=== PATIENT | female | born 1990 | race Caucasian/White ===

== ENCOUNTER 2018-08-22 00:15 | Emergency (ER) | payer SELFPAY ==
[~2018-08-22] VITALS: Ht 152.4 cm; Wt 47.7 kg
[2018-08-22 00:16] VITALS: BP 139/75
[2018-08-22] MEDS ORDERED: VENTAER INH (00:23)
== END 2018-08-22 05:01 | disposition left against medical advice (07) ==
LOC: M ED 00:15
DX: R06.02 Shortness of breath (principal); Z53.21 Procedure and treatment not carried out due to patient leaving prior to being seen by health care provider

== ENCOUNTER → 2019-01-07 | Outpatient (REF) | payer OTHER ==
[~2019-01-07] MED LIST: VENTAER INH
== END ==
LOC: M SFHCLERA 14:57
PROVIDERS: ATTEND Nurse Practitioner Family
DX: Z00.00 Encounter for general adult medical examination without abnormal findings (principal); Z53.9 Procedure and treatment not carried out, unspecified reason

== ENCOUNTER → 2019-01-09 | Outpatient (CLI) | payer OTHER ==
[~2019-01-09] MED LIST changes: +METHACHOLINE KIT (J7674) INH ONE
--- NOTE | 2019-01-09 08:27 | PFTRPT ---
Height: 60.50 Inches Weight: 105.00 Lbs BSA: 1.43 Diagnosis: R06.00 DATE OF PROCEDURE: 01/09/2019 ORDERED BY: Damaso Jain PA-C INTERPRETATION: Study of excellent technical quality. Under protocol, methacholine was administered. Even after a maximal dose of 25 mg or 188.875 CDUs, no provocation dose ever achieved. IMPRESSION: Negative methacholine challenge study. MTDD
== END ==
LOC: M CARPUL 07:24
PROVIDERS: ATTEND Physician Assistant
DX: R06.00 Dyspnea, unspecified (principal)
CPT/HCPCS: 94070; J7674

== ENCOUNTER → 2019-02-26 | Outpatient (CLI) | payer OTHER ==
[~2019-02-26] MED LIST changes: -METHACHOLINE KIT (J7674) INH ONE
[2019-02-26 14:22] LABS: FREE T4 1.04 NG/DL (0.76-1.46); PROLACTIN 9.4 NG/ML; THYROID STIMULATING HORMONE 1.68 uIU/ML (0.358-3.740)
[2019-02-26 14:30] LABS: HEMOGLOBIN A1c 5.2 %
== END ==
LOC: M PLALAB 10:37
PROVIDERS: ATTEND Advanced Practice Midwife
DX: N92.1 Excessive and frequent menstruation with irregular cycle (principal)

== ENCOUNTER → 2019-03-04 | Outpatient (CLI) | payer OTHER ==
--- NOTE | 2019-03-05 05:32 | REP ---
Clinical: Abnormal menstrual cycles. Technique: Transabdominal pelvic ultrasound with color Doppler evaluation of the ovaries. Findings: Bladder is well distended and normal measuring approximately 9.7 x 6.0 x 8.4 cm. Normal anteverted uterus measures 6.6 x 4.3 x 5.2 cm. Endometrial complex measures 8.8 mm thickness. Bilateral ovaries are normal in appearance and vascularity without torsion. Right ovary measures 3.9 x 1.8 x 3.7 cm (RI 0.50). Left ovary measures 2.5 x 125.7 cm (RI 0.47). No pelvic fluid or adnexal mass lesion. Impression: Normal pelvic ultrasound.
== END ==
LOC: M WHC 13:47
PROVIDERS: ATTEND Advanced Practice Midwife
DX: N92.1 Excessive and frequent menstruation with irregular cycle (principal); N94.6 Dysmenorrhea, unspecified

== ENCOUNTER → 2019-04-29 | Outpatient (CLI) | payer OTHER ==
--- NOTE | 2019-04-29 09:46 | REP ---
Chest x-ray: Two views. History: Cough . Comparison study: No comparison study . Findings: The lungs are well inflated and free of infiltrate. The pleural angles are sharp. The heart size is normal. Pulmonary vasculature is not increased. No significant bony abnormality is seen. Nipple jewelry is noted incidentally overlying the chest. Impression: Negative chest x-ray. Electronically Signed by Rodney Pradhan MD 04/29/2019 09:37 A
== END ==
LOC: M LRY 09:24
PROVIDERS: ATTEND Nurse Practitioner Family
DX: R05 Cough (principal)
CPT/HCPCS: 71046; G0463

== ENCOUNTER → 2019-05-12 | Outpatient (CLI) | payer OTHER ==
--- NOTE | 2019-05-12 09:20 | REP ---
Clinical: Mass. Technique: AP and lateral views of the sternum. Findings: Sternum appears intact and normal. Overlying precervical soft tissues appear unremarkable. Impression: Normal sternal radiographs. Electronically Signed by Stephan Mars MD 05/12/2019 09:11 A
--- NOTE | 2019-05-12 09:21 | REP ---
Clinical: Right rib pain Technique: Frontal view of the chest with multiple views of the right hemithorax. Findings: Frontal view of the chest demonstrates no acute cardiopulmonary process. Multiple views of the right hemithorax demonstrates no obvious acute rib fracture or pathology. Impression: Normal right rib series Electronically Signed by Stephan Mars MD 05/12/2019 09:12 A
== END ==
LOC: M LRY 07:56
PROVIDERS: ATTEND Family Medicine
DX: R07.81 Pleurodynia (principal)
CPT/HCPCS: 71101; 71120; G0463

== ENCOUNTER → 2019-05-15 | Outpatient (CLI) | payer OTHER ==
--- NOTE | 2019-05-15 11:30 | REP ---
REASON FOR EXAM: Right parasternal mass. There are no priors for comparison. There is a small amount of triangular-shaped density in the anterior mediastinum. There is no mediastinal or hilar adenopathy. There are no pleural or pericardial effusions. The imaged upper abdomen is within normal limits. The imaged osseous structures are within normal limits. There is some asymmetry of the sternal chondral junction, which has a slightly more prominent anterior projection on the right at the lowest margin of the sternal body and essentially at the xiphisternal junction. Evaluation of the lung mayen show no abnormal nodules, masses, or opacities. IMPRESSION: There is slight asymmetry of the sternal chondral junction as described above which could potentially be the clinically palpable finding. Asymmetry is, however, somewhat slight and would be within normal limits. There is no soft tissue mass. If clinically relevant, consider MRI for further evaluation. Electronically Signed by Kirill Villasenor DO 05/15/2019 02:41 P
== END ==
LOC: M RAD 09:31
PROVIDERS: ATTEND Family Medicine
DX: R07.81 Pleurodynia (principal)

== ENCOUNTER → 2019-06-04 | Outpatient (CLI) | payer OTHER ==
[~2019-06-04] MED LIST changes: +PROHANCE 279.3MG/ML 15ML VIAL (A9576) As Ordered ONE
--- NOTE | 2019-06-04 18:20 | REP ---
MRI CHEST WITH AND WITHOUT CONTRAST: HISTORY: Palpable lump right anterior chest. The lump is marked on the skin. COMPARISON: Comparison is made with CT 05/15/2019. Multiple sequences obtained in the axial, coronal and sagittal planes prior to and following the intravenous administration of 9.5 mL ProHance. No soft tissue mass is seen in the anterior chest wall. No cyst or fluid collection is seen. At the site of the palpable lump the xyphoid process angulates anteriorly and to the right and accounts for the palpable abnormality. No definite abnormality is seen of the sternum. IMPRESSION: Palpable lump appears to correspond to the xyphoid process which is angulated anteriorly and to the right. There is no underlying cystic or solid mass. Electronically Signed by Austin Kunz MD 06/04/2019 07:29 P
== END ==
LOC: M RAD 15:01
PROVIDERS: ATTEND Family Medicine
DX: R07.81 Pleurodynia (principal)
CPT/HCPCS: 71552; A9576

== ENCOUNTER → 2019-09-11 | Outpatient (REF) | payer OTHER ==
[~2019-09-11] MED LIST changes: -PROHANCE 279.3MG/ML 15ML VIAL (A9576) As Ordered ONE
== END ==
LOC: M SFHCWAGY 15:03
PROVIDERS: ATTEND Advanced Practice Midwife
DX: Z12.4 Encounter for screening for malignant neoplasm of cervix (principal)

== ENCOUNTER → 2019-11-14 | Outpatient (CLI) | payer OTHER ==
[2019-11-14 14:00] LABS: BASO % 0.8 % (0.0-1.0); EOS # 0.1 10^3/uL (0.0-0.5); EOS % 1.6 % (0.0-3.0); HEMATOCRIT 43.4 % (36.0-47.0); HEMOGLOBIN 14.3 g/dl (12.0-15.5); LYMPH # 1.2 10^3/uL (1.5-5.0); LYMPH % 32.5 % (24.0-44.0); MEAN CORPUSCULAR HEMOGLOBIN 30.4 pg (27.0-33.0); MEAN CORPUSCULAR HGB CONC 32.9 g/dl (32.0-36.5); MEAN CORPUSCULAR VOLUME 92.3 fl (80.0-96.0); MONO # 0.5 10^3/uL (0.0-0.8); MONO % 13.4 % (0.0-5.0); NEUTROPHILS # 1.9 10^3/uL (1.5-8.5); NEUTROPHILS % 51.7 % (36.0-66.0); PLATELET COUNT, AUTOMATED 308 10^3/uL (150-450); WHITE BLOOD COUNT 3.7 10^3/uL (4.0-10.0)
[2019-11-14 14:01] LABS: APPEARANCE, URINE CLEAR (CLEAR); BACTERIA, URINE AUTO NEGATIVE (NEGATIVE); BILIRUBIN, URINE AUTO NEGATIVE (NEGATIVE); BLOOD, URINE BLOOD NEGATIVE (NEGATIVE); COLOR, URINE COLORLESS (YELLOW); GLUCOSE, URINE (UA) AUTO NEGATIVE (NEGATIVE); KETONE, URINE AUTO NEGATIVE (NEGATIVE); LEUKOCYTE ESTERASE, URINE AUTO NEGATIVE (NEGATIVE); MUCUS, URINE SMALL (NEGATIVE); NITRITE, URINE AUTO NEGATIVE (NEGATIVE); PROTEIN, URINE AUTO NEGATIVE (NEGATIVE); RBC, URINE AUTO 0 /HPF (0-3); SPECIFIC GRAVITY URINE AUTO 1.001 (1.002-1.035); SQUAMOUS EPITHELIAL CELL UR AU 0 /HPF (0-6); UROBILINOGEN, URINE AUTO 0.2 mg/dL (0.0-2.0); WBC, URINE AUTO 0 /HPF (0-3)
[2019-11-14 14:06] LABS: ALBUMIN 4.3 GM/DL (3.2-5.2); BILIRUBIN,DIRECT 0.1 MG/DL (0.0-0.2); BILIRUBIN,TOTAL 0.5 MG/DL (0.2-1.0); TOTAL PROTEIN 7.7 GM/DL (6.4-8.2)
[2019-11-14 14:23] LABS: CREATININE,RANDOM URINE < 13.0 MG/DL; TOTAL PROTEIN,RANDOM URINE < 5.0 MG/DL (0.0-12.0)
[2019-11-14 14:46] LABS: ERYTHROCYTE SEDIMENTATION RATE 8 mm/hr (0-20)
[2019-11-14 16:44] LABS: PTH INTACT 27.2 PG/ML (18.5-88.0)
[2019-11-18 06:11] LABS: ANTI CENTROMERE ANTIBODY <0.2 AI (0.0-0.9); ANTI DS-DNA AB Negative (Negative); ANTI SCLERODERMA ANTIBODIES <0.2 AI (0.0-0.9); BETA-2 GLYCOPROTEIN I ABY IGA <9 (0-25); BETA-2 GLYCOPROTEIN I ABY IGG <9 (0-20); BETA-2 GLYCOPROTEIN I ABY IGM <9 (0-32); CARDIOLIPIN IGA ANTIBODY <9 APL U/mL (0-11); CARDIOLIPIN IGG ANTIBODY <9 GPL U/mL (0-14); CARDIOLIPIN IGM ANTIBODY <9 MPL U/mL (0-12); COMPLEMENT TOTAL (CH50) 50 U/mL (>41); RNP ANTIBODY < 0.2 AI (0.0-0.9); SMITHS ANTIBODY < 0.2 AI (0.0-0.9)
[2019-11-19 11:16] LABS: DRVV SCREEN 39.5 SEC
== END ==
LOC: M PLALAB 09:58
PROVIDERS: ATTEND Internal Medicine
DX: R76.8 Other specified abnormal immunological findings in serum (principal); E83.52 Hypercalcemia; D72.819 Decreased white blood cell count, unspecified

== ENCOUNTER → 2019-12-04 | Outpatient (REF) | payer OTHER ==
[2019-12-09 13:08] LABS: ANTI-HISTONE ANTIBODIES 1.1 Units (0.0-0.9); SSA SJOGRENS A <0.2 AI (0.0-0.9); SSB SJOGRENS B <0.2 AI (0.0-0.9)
== END ==
LOC: M SFHCRHEU 12:17
PROVIDERS: ATTEND Internal Medicine
DX: R76.8 Other specified abnormal immunological findings in serum (principal)
CPT/HCPCS: 83520; 86235; G0463

== ENCOUNTER → 2020-03-29 | Outpatient (REF) | payer OTHER ==
[2020-03-29 16:09] LABS: HEMATOCRIT 38.2 % (36.0-47.0); HEMOGLOBIN 13.1 g/dl (12.0-15.5); MEAN CORPUSCULAR HEMOGLOBIN 30.8 pg (27.0-33.0); MEAN CORPUSCULAR HGB CONC 34.3 g/dl (32.0-36.5); MEAN CORPUSCULAR VOLUME 89.9 fl (80.0-96.0); PLATELET COUNT, AUTOMATED 261 10^3/uL (150-450); RED BLOOD COUNT 4.25 10^6/uL (4.00-5.40); WHITE BLOOD COUNT 7.8 10^3/uL (4.0-10.0)
[2020-03-29 17:21] LABS: HEPATITIS C VIRUS ABY INDEX 0.1 INDEX (<0.8); HIV 1&2 SCREEN CENTAUR NEGATIVE (NEGATIVE)
[2020-03-30 13:16] LABS: CHLAMYDIA DNA AMPLIFICATION NEGATIVE (NEGATIVE); GC DNA AMPLIFICATION NEGATIVE (NEGATIVE)
== END ==
LOC: M PLALAB 11:58
PROVIDERS: ATTEND Obstetrics & Gynecology
DX: Z36.89 Encounter for other specified antenatal screening (principal); Z3A.01 Less than 8 weeks gestation of pregnancy

== ENCOUNTER → 2020-06-21 | Outpatient (CLI) | payer OTHER ==
--- NOTE | 2020-06-21 17:58 | REP ---
INDICATION: ANATOMY EUN 11/12/20. COMPARISON: None. TECHNIQUE: Transabdominal obstetric sonography. FINDINGS: Scanning through the gravid uterus demonstrates a viable single intrauterine gestation in transverse lie. motion is observed and heart rate is recorded at 158 beats per minute. A anterior placenta is seen, grade 1, without evidence of placenta previa. Closed cervical length is measured at 5.3 cm transabdominally. No extrauterine abnormality is observed. Amniotic fluid is subjectively normal. No anomaly is seen. The following anatomic structures are identified and felt to be sonographically unremarkable: cranium, choroid plexus, cavum, cerebellum and posterior fossa, face and profile, lungs, diaphragm, left-sided stomach, abdominal wall cord insertion, three-vessel umbilical cord, kidneys and bladder, spine, and upper and lower extremities. Four-chamber heart and outflow tract views less than optimally visualized today due to position. Biometry chart: BPD 4.9 cm, 20 weeks 6 days Head circumference 18.1 cm, 20 weeks 4 days Abdominal circumference 14.6 cm, 19 weeks 6 days Femur length 3.2 cm, 20 weeks 0 days Humeral length 3.2 cm, 20 weeks 4 days HC AC ratio normal 1.24 Cephalic index normal 0.76 Estimated weight 329 g, 0 lb 1 oz, 80th percentile for 19 weeks 3 days. IMPRESSION: Viable single intrauterine gestation at 20 weeks 3 days by today's composite sonographic criteria. EUN by today's sonography November 05, 2020. No complication identified. Expected gestational age estimate based on known EUN of 11/12/2020 is 19 weeks 3 days. <Electronically signed by Robbin Pradhan > 06/21/20 [id number]
== END ==
LOC: M WHC 09:26
PROVIDERS: ATTEND Advanced Practice Midwife
DX: Z36.89 Encounter for other specified antenatal screening (principal); O32.2XX0 Maternal care for transverse and oblique lie, not applicable or unspecified; Z3A.19 19 weeks gestation of pregnancy

== ENCOUNTER → 2020-06-22 | Outpatient (REF) | payer OTHER ==
[2020-06-22 11:33] LABS: FREE T4 0.93 NG/DL (0.76-1.46); THYROID STIMULATING HORMONE 1.11 uIU/ML (0.358-3.740)
== END ==
LOC: M PLALAB 09:10
PROVIDERS: ATTEND Advanced Practice Midwife
DX: L65.9 Nonscarring hair loss, unspecified (principal)

== ENCOUNTER → 2020-07-14 | Outpatient (CLI) | payer OTHER ==
--- NOTE | 2020-07-14 12:13 | REP ---
INDICATION: F/U ANATOMY/EUN 11/12/20 COMPARISON: 06/21/2020 TECHNIQUE: Transabdominal obstetrical ultrasound with color Doppler evaluation. FINDINGS: Examination demonstrates a single live intrauterine in cephalic presentation. motion is identified by technologist. Placenta is noted anterior and grade 1 without evidence for placenta previa or abruption. Amniotic fluid volume is normal. Cervix measures 3.8 cm in length and appears closed.. Gestational age by 1st U/S 22 weeks 5 days with EUN 11/12/2020. Gestational age by current measurements 23 weeks 5 days with EUN 11/05/2020. FHR equals 158 beats per minute. Estimated weight 578 grams (70thpercentile). Anatomical assessment demonstrates normal structures including cranium, choroid plexus, cavum, cerebellum/posterior fossa, facial features, lungs, four-chamber heart/ventricular outflow tracts, diaphragm, stomach, cord insertion/three-vessel cord, kidneys/bladder, spine, and extremities. IMPRESSION: Single live intrauterine in cephalic presentation demonstrating appropriate estimated weight. In conjunction with prior examination anatomical assessment is complete and normal. <Electronically signed by Stephan Mars > 07/14/20 [id number]
== END ==
LOC: M WHC 09:38
PROVIDERS: ATTEND Advanced Practice Midwife
DX: Z36.2 Encounter for other antenatal screening follow-up (principal); Z3A.23 23 weeks gestation of pregnancy

== ENCOUNTER → 2020-07-20 | Outpatient (REF) | payer OTHER | LOC: M PLALAB 08:33 | PROVIDERS: ATTEND Obstetrics & Gynecology | DX: Z34.82 Encounter for supervision of other normal pregnancy, second trimester (principal); Z3A.23 23 weeks gestation of pregnancy ==

== ENCOUNTER → 2020-08-17 | Outpatient (REF) | payer OTHER | LOC: M PLALAB 15:46 | PROVIDERS: ATTEND Obstetrics & Gynecology | DX: Z36.89 Encounter for other specified antenatal screening (principal); Z3A.23 23 weeks gestation of pregnancy; O99.810 Abnormal glucose complicating pregnancy; Z53.9 Procedure and treatment not carried out, unspecified reason | CPT/HCPCS: 36415; 82950; 82951; 82952; 85027; G0463 ==

== ENCOUNTER → 2020-08-17 | Outpatient (CLI) | payer OTHER ==
[2020-08-17 10:37] LABS: HEMATOCRIT 33.5 % (36.0-47.0); HEMOGLOBIN 11.2 g/dl (12.0-15.5); MEAN CORPUSCULAR HEMOGLOBIN 31.7 pg (27.0-33.0); MEAN CORPUSCULAR HGB CONC 33.4 g/dl (32.0-36.5); MEAN CORPUSCULAR VOLUME 94.9 fl (80.0-96.0); PLATELET COUNT, AUTOMATED 193 10^3/uL (150-450); RED BLOOD COUNT 3.53 10^6/uL (4.00-5.40); WHITE BLOOD COUNT 6.4 10^3/uL (4.0-10.0)
== END ==
LOC: M PLALAB 08:25
PROVIDERS: ATTEND Obstetrics & Gynecology
DX: Z36.89 Encounter for other specified antenatal screening (principal); Z3A.23 23 weeks gestation of pregnancy

== ENCOUNTER → 2020-08-26 | Outpatient (CLI) | payer OTHER | LOC: M LAB 07:59 | PROVIDERS: ATTEND Obstetrics & Gynecology | DX: O99.810 Abnormal glucose complicating pregnancy (principal); Z3A.00 Weeks of gestation of pregnancy not specified ==

== ENCOUNTER → 2020-09-14 | Outpatient (CLI) | payer OTHER | LOC: M WHC 14:43 | PROVIDERS: ATTEND Obstetrics & Gynecology | DX: O24.419 Gestational diabetes mellitus in pregnancy, unspecified control (principal); Z53.9 Procedure and treatment not carried out, unspecified reason ==

== ENCOUNTER → 2020-09-21 | Outpatient (CLI) | payer OTHER ==
[~2020-09-21] MED LIST changes: +FOLI1TAB11 PO; +IBUP80TA PO; +METF500T13 PO; +PERCOCET PO; +PRENTAB9 PO
== END ==
LOC: M WHC 10:03
PROVIDERS: ATTEND Obstetrics & Gynecology
DX: O24.425 Gestational diabetes mellitus in childbirth, controlled by oral hypoglycemic drugs (principal); Z3A.00 Weeks of gestation of pregnancy not specified; Z53.9 Procedure and treatment not carried out, unspecified reason

== ENCOUNTER → 2020-09-30 | Outpatient (CLI) | payer OTHER ==
[~2020-09-30] MED LIST changes: -FOLI1TAB11 PO; -IBUP80TA PO; -METF500T13 PO; -PERCOCET PO; -PRENTAB9 PO
--- NOTE | 2020-09-30 15:03 | REP ---
INDICATION: GESTATIONAL DIABETES. COMPARISON: 07/14/2020 TECHNIQUE: Transabdominal scanning FINDINGS: Multiple ultrasonographic images of the gravid uterus show a single living intrauterine gestation in the cephalic presentation. Doppler interrogation of the heart shows a heart rate of 167 beats per minute. The subjective amniotic fluid volume is within normal limits. The calculated amniotic fluid index is 14.7 within expected range 8.1 to 24.8. The placenta is anterior and not low-lying. The cervix measures 4.4 cm in length and is closed. Doppler interrogation of the umbilical artery shows an A\B ratio of 2.06. This is within the normal range. BPD: 9.1 cm 37 weeks 0 days HC: 33.0 cm 37 weeks 4 days AC: 33.1 cm 37 weeks 0 days FL: 7.0 cm 36 weeks 0 days The estimated weight is 3042 g which is greater than the 97th percentile for 33 week 6 day gestational age. IMPRESSION: Limited OB ultrasound, as described above, showing a single living intrauterine gestation with an estimated gestational age of 36 weeks 6 days via composite criteria and an estimated date of delivery of 10/22/2020 by today's exam. <Electronically signed by Kirill Villasenor > 09/30/20 [id number]
== END ==
LOC: M WHC 13:21
PROVIDERS: ATTEND Obstetrics & Gynecology
DX: O24.425 Gestational diabetes mellitus in childbirth, controlled by oral hypoglycemic drugs (principal); Z3A.36 36 weeks gestation of pregnancy

== ENCOUNTER → 2020-10-14 | Outpatient (REF) | payer OTHER ==
[~2020-10-14] MED LIST changes: +FOLI1TAB11 PO; +IBUP80TA PO; +METF500T13 PO; +PERCOCET PO; +PRENTAB9 PO
== END ==
LOC: M SFHCWAGY 17:19
PROVIDERS: ATTEND Specialist
DX: O24.415 Gestational diabetes mellitus in pregnancy, controlled by oral hypoglycemic drugs (principal); Z3A.00 Weeks of gestation of pregnancy not specified
CPT/HCPCS: 59025; 87081; G0463

== ENCOUNTER → 2020-10-19 | Outpatient (CLI) | payer OTHER ==
--- NOTE | 2020-10-19 09:01 | REP ---
INDICATION: GROWTH/GEST DIABETES COMPARISON: 09/30/2020 TECHNIQUE: Transabdominal obstetrical ultrasound with color Doppler evaluation. FINDINGS: Examination demonstrates a single live intrauterine in cephalic presentation. motion is identified by technologist. Placenta is noted anterior and grade 1 without evidence for placenta previa or abruption. Amniotic fluid volume is normal. Cervix measures 3.8 cm in length and appears closed.. Selected gestational age: 36 weeks 4 days with EUN 11/12/2020. Gestational age by current measurements 38 weeks 3 days with EUN 10/30/2020. FHR equals 160 beats per minute. BPD: 9.5 cm at 38 weeks 4 days HC: 33.8 cm at 30 weeks 5 days AC: 34.7 cm at 38 weeks 4 days FL: 7.5 cm at 38 weeks 1 day HL: 6.5 cm at 37 weeks 6 days HC/AC: 0.97 Estimated weight 3510 grams (greater than 97thpercentile). FAISAL: 17.8 cm Umbilical artery SD ratio: 2.32 IMPRESSION: Single live advanced gestation in cephalic presentation demonstrating greater than expected interval growth. <Electronically signed by Stephan Mars > 10/19/20 0857
== END ==
LOC: M WHC 07:30
PROVIDERS: ATTEND Obstetrics & Gynecology
DX: O24.419 Gestational diabetes mellitus in pregnancy, unspecified control (principal); Z3A.36 36 weeks gestation of pregnancy; O36.63X0 Maternal care for excessive fetal growth, third trimester, not applicable or unspecified
CPT/HCPCS: 59025; 76816; G0463

== ENCOUNTER 2020-10-29 09:52 | Inpatient (IN) | payer OTHER ==
[~2020-10-29] VITALS: Ht 152.4 cm; Wt 61.3 kg
[2020-10-29] VITALS (9 sets, daily range): BP systolic 106–123; BP diastolic 58–73
[~2020-10-29 09:52] MED LIST changes: -FOLI1TAB11 PO; -IBUP80TA PO; -METF500T13 PO; -PERCOCET PO; -PRENTAB9 PO
[2020-10-29] MEDS ORDERED: LACTATED RINGER'S 1000 ML IV STA (10:16)
[2020-10-29] MEDS ORDERED: TRANEXAMIC ACID INJection 1,000 MG in NS 100 ML IV PRN (10:20)
[2020-10-29] MEDS ORDERED: LIDOCAINE 1% MDV 20ML VIAL INFIL PRN (10:20)
[2020-10-29] MEDS ORDERED: OXYTOCIN DRIP 30 UNITS in IV 1 EA IV PRN (10:20)
[2020-10-29] MEDS ORDERED: CARBOPROST TROMETHAMINE 250 MCG/ML AMP IM PRN (10:20)
[2020-10-29] MEDS ORDERED: METHYLERGONOVINE MALEATE 0.2 MG/ML VIAL (J2210) IM PRN (10:20)
[2020-10-29] MEDS ORDERED: FOLI1TAB11 PO (10:28)
[2020-10-29] MEDS ORDERED: PRENTAB9 PO (10:28)
[2020-10-29] MEDS ORDERED: HOME MED LIST COMPLETE! XX SCH (10:30)
[2020-10-29] MEDS ORDERED: METF500T13 PO (10:40)
[2020-10-29 11:34] LABS: HEMATOCRIT 35.4 % (36.0-47.0); HEMOGLOBIN 11.9 g/dl (12.0-15.5); MEAN CORPUSCULAR HEMOGLOBIN 29.6 pg (27.0-33.0); MEAN CORPUSCULAR HGB CONC 33.6 g/dl (32.0-36.5); MEAN CORPUSCULAR VOLUME 88.1 fl (80.0-96.0); PLATELET COUNT, AUTOMATED 177 10^3/uL (150-450); RED BLOOD COUNT 4.02 10^6/uL (4.00-5.40); WHITE BLOOD COUNT 5.2 10^3/uL (4.0-10.0)
--- NOTE | 2020-10-29 11:49 | HPEPDOC ---
Obstetrical History & Physical General Date of Admission Oct 29, 2020 at 09:52 Primary Care Physician: MEI MCKEON CNM History of Present Illness Jamir is a 30-year-old female who is a at 38 weeks gestation with an EUN of 11/12/20 based off of her first trimester ultrasound. She initiated her ca re with [facility]. Her has been complicated by A2GDM, which has been controlled with Metformin 500 mg HS and diet. She presents to L&D for induction today due to gestational diabetes. She reports active movement. She denies vaginal bleeding, leaking of fluid or contractions. Chief Complaint: Induction of labor, Other (gestational diabetes) Information Provided By: Patient Age: 30 : 1 Term: 0 Pre-term: 0 Abortions: 0 Livin Care Care: Good Care Dating Final EDC: Nov 12, 2020 Final EDC by: 1st trimester (US) EGA at Admission: 38 Antepartum Course Diagnos(e)s A2GDM Height (inches): 60 Pre- weight (lbs.): 110 Admission Weight (lbs.): 137 Change in Weight (lbs.): 27 Past Medical History Past Obstetrical History : Past Obstetrical History: Primgrav[employer] History: No pertinent history Past Medical History Medical History +URVASHI abnormal hair loss Gestational diabetes undifferentiated connective tissue disorder Surgical History: Appendectomy, Other (Lasik eye surgery) Family History Significant Family History: Hypertension, Other (fibromyalgia) Social History Marital Status: Family situation: Spouse/partner home Psychosocial History: No pertinent psych hx * Smoker: non-smoker Alcohol: Denies Drugs: denies Abuse Violence Screening Have you been hit/kicked/slapp: No Have you been sexually assault: No Allergies Coded Allergies: No Known Allergies (Unverified , 08/22/18) Medications Scheduled Folic Acid (Folic Acid) 1 Mg Tablet, 1 TAB PO DAILY Metformin HCl (Metformin HCl) 500 Mg Tablet, 1 TAB PO BID No.137/Iron/Folic Acd ( Vitamin Tablet) 1 Each Tablet, 1 TAB PO DAILY Physical Examination Physical Examination GENERAL: Alert and oriented times three. ABDOMEN: Gravid and non-tender to touch. FETUS: Is vertex (VTX) by sterile vaginal examination (SVE), fetus is vertex (V TX) by Ilan. EFW 3700 grams. LUNGS: respiratory rate is regular without use of accessory muscles. EXTREMITIES: Generalized edema. No clonus. Deep tendon reflexes (DTRs) + 2. Laboratory Data 24H LABS Laboratory Tests 2 10/29/20 10:09: Serology Scanned Report Hepatitis B Testing 10/29/20 11:16: Bedside Glucose (Misc Panel) 88 10/29/20 11:20: Nucleated Red Blood Cells % (auto) 0.0 10/29/20 11:28: CBC/BMP Laboratory Tests 10/29/20 11:20 Urine Culture: No Growth Pertinent Laboratoy Data Blood Type: A+ RBC Antibody Screen: Negative HIV: Negative Hepatitis B: Negative Hepatitis C: Negative Rapid Plasma Reagin: Nonreactive Rubella: Immune Chlamydia/Gonorrhea: Negative Group B Streptococcus: Negative Glucose Tolerance Test: 174 Anatomy Ultrasound Ultrasound Date: Oct 19, 2020 Placenta Location: Anterior Normal Anatomy: Yes Placenta Previa: No Estimated Weight (grams): 3510 Vaginal Examination Dilation: Fingertip Effacement: 50% Cervical Consistency: Soft Cervical Position: Posterior Presentation: Cephalic presentation Assessment Heart Rate (FHR): 130 Variability: Moderate Accelerations: Positive Decelerations: None Tocometer Contractions: Yes Frequency: irregular Multi-drug resistant Organism: No history of MDRO Assessment/Plan Assessment IUP at 38 weeks gestation A2GDM Category I FHR tracing GBS negative Plan Admit patient to L&D. OOB ad heather. Diet: regular now then clears with Pitocin. Group B Streptococcus (GBS) negative. Labs and intravenous (IV) per unit protocol. Counseled on Cytotec, chapin bulb and IV Pitocin for induction of labor. Anesthesia consult per patient's request. Lactated Ringers (LR): Bolus 800 mL prior to epidural, then at 125 mL/hr. Anticipate cervical ripening. C-S as appropriate. MEI MCKEON CNM Oct 29, 2020 11:49
[2020-10-29] MEDS: miSOPROStol 50MCG 1/2 TABLET PO SCH ×4 (12:00→23:58)
[2020-10-30] VITALS (22 sets, daily range): BP systolic 93–134; BP diastolic 53–80
[2020-10-30] MEDS: miSOPROStol 50MCG 1/2 TABLET PO SCH (04:26)
[2020-10-30] MEDS ORDERED: OXYTOCIN DRIP 30 UNITS in IV 1 EA IV SCH ×2 (08:35→23:30)
[2020-10-30] MEDS: LR 1,000 ML IV SCH ×2 (08:57→16:30)
--- NOTE | 2020-10-30 16:28 | IPNPDOC ---
Obstetrical Progress Note Date of Service Oct 30, 2020 Subjective IOL, reports pain 8 out of 10. Declines pain medication/epidural Objective Vital Signs Date Time Temp Pulse Resp B/P (MAP) Pulse Ox O2 Delivery O2 Flow Rate FiO2 10/30/20 15:18 98.3 82 19 116/70 (85) 10/30/20 11:16 100 Assessment Variability: Moderate Accelerations: Positive Heart Rate Tracing: Category I Tocometer Contractions: Yes Frequency: regular Sterile Vaginal Examination Dilation: 1cm Effacement (%): 70% Station: -2 Cervical Consistency: Soft Cervical Position: Posterior (Cooks cath placed 70/30) Postion/Presentation: Cephalic presentation Assessment and Plan Age: 30 : 1 Status: Reassuring Group B Streptococcus: Negative Anticipate: Vaginal Delivery GRAY SCOTT MD. Oct 30, 2020 16:28
[2020-10-30] MEDS ORDERED: IBUPROFEN 800 MG TAB PO SCH (20:00)
[2020-10-30] MEDS ORDERED: LACTATED RINGER'S 1000 ML IV STA (21:52)
[2020-10-30] MEDS ORDERED: ceFAZolin SOD 2 GM in IV 1 EA IV ONE (21:55)
[2020-10-30] MEDS ORDERED: AZITHROMYCIN INJ 500 MG, VIAL MATE ADAPTER 1 EACH in NS 250 ML IV ONE (21:55)
[2020-10-30] MEDS ORDERED: BICITRA 30ML SOLN UDC As Ordered ONE (22:01)
--- NOTE | 2020-10-30 22:02 | IPNPDOC ---
Obstetrical Progress Note Date of Service Oct 30, 2020 Subjective Patient reports 8/10 pain. Pitocin at 18mU. Cook cath out. Objective Vital Signs Date Time Temp Pulse Resp B/P (MAP) Pulse Ox O2 Delivery O2 Flow Rate FiO2 10/30/20 19:01 75 16 93/54 (67) 10/30/20 17:49 99.2 10/30/20 11:16 100 Assessment Variability: Moderate Accelerations: Positive Heart Rate Tracing: Category I Tocometer Contractions: Yes Frequency: regular Sterile Vaginal Examination Dilation: 1cm Effacement (%): 70% Station: -2 Cervical Position: Posterior Postion/Presentation: Cephalic presentation Assessment and Plan Age: 30 : 1 Status: Reassuring Group B Streptococcus: Negative Anticipate: Section Additional Comments I discussed replacing Cook cath ( previous cook did not get in passed external cervical os)and continuation of induction vs proceed with 1LTCS for failed induction. After consultation, patient has decided for c/s. GRAY SCOTT MD. Oct 30, 2020 22:02
[2020-10-30] MEDS ORDERED: METOCLOPRAMIDE INJ 10MG/2ML VIAL (J2765 PER 1) IV PRN (22:21)
[2020-10-30] MEDS ORDERED: ONDANSETRON 4MG/2ML VIAL IV PRN ×2 (22:21→23:30)
[2020-10-30] MEDS ORDERED: NALBUPHINE HCL 10 MG/ML AMP (J2300) IV PRN (22:21)
[2020-10-30] MEDS ORDERED: NALOXONE INJ 0.4MG/1ML VIAL (J2310 PER 1MG) IV PRN ×2 (22:21)
[2020-10-30] MEDS ORDERED: diphenhydrAMINE 50MG/ML VIAL (J1200) IV PRN (22:21)
[2020-10-30] MEDS ORDERED: SIMETHICONE 80MG CHEW TAB PO PRN (23:30)
[2020-10-30] MEDS ORDERED: MEASLES,MUMPS,RUBELLA VACCINE INJ (MMR-II) (90707) SC SCH (23:30)
[2020-10-30] MEDS ORDERED: PERCOCET 5MG/325MG TAB PO PRN ×2 (23:30)
[2020-10-30] MEDS ORDERED: LR 1,000 ML IV SCH (23:30)
[2020-10-30] MEDS ORDERED: MOM 30ML SUSPENSION UDC PO PRN (23:30)
[2020-10-30] MEDS ORDERED: RHOGAM 300 MCG (1500 IU) INJ (J2790) IM SCH (23:30)
--- NOTE | 2020-10-30 23:36 | ROOPDOC ---
[facility] Report Of Operation Report of Operation DATE OF PROCEDURE: 10/30/20 SURGEON: Cherri Odonnell M.D. BRICK DROPPER: Jas Marcus DO. ( essential for tissue retractions, exposure and delivery of ) PROCEDURE: Primary section PREOPERATIVE DIAGNOSIS: 1. Failed induction POSTOPERATIVE DIAGNOSIS: 1. Failed induction ANESTHESIA: Spinal ESTIMATED BLOOD LOSS: 600 mL URINE OUTPUT: 200 mL INTRAVENOUS FLUIDS: 1500 mL of lactated Ringer's solution PREOPERATIVE ANTIBIOTICS:. 2 g of Ancefand 500 azithromycin OPERATIVE FINDINGS: Liveborn female infant, Apgars 9 and 9. Weight 3230 g or 7 lbs. 2 oz. SPECIMENS: None DESCRIPTION OF PROCEDURE: After informed consent was obtained and written co nsent was reviewed. The patient was brought to the operating room where spinal anesthesia was placed. She was then placed in the supine position with a left lateral tilt. Basurto catheter was placed and to gravity. Patient was then prepped and draped in the normal sterile fashion. A timeout operating room was performed identifying the patient, procedure be performed as well as drug allergies. Anesthesia was tested and deemed to be adequate. Pfannenstiel skin incision was made and this was carried down to the underlying rectus fascia. The fascia was then scored and this incision was extended bilaterally. The fascia was then dissected off the underlying rectus muscle superiorly and inferiorly. The rectus muscles were then in the midline. The peritoneum is then entered. Vesicouterine peritoneum was then tented and excised and a bladder flap was created. Mobius retractor was then placed. Next, a curvilinear incision was then made in the lower uterine segment. Amniotomy was performed, productive, clear fluid. The head was brought to the level of the incision atraumatically and delivered along the shoulders and corpus. The cord was clamped x2. The infant was brought over to the warmer with a good cry. Placenta was drained and delivered grossly intact. The uterus was cleared of all clots and debris and the uterine incision was then closed using 0 Vicryl in a running locking fashion followed by a second layer of 0 Vicryl in a running nonlocking fashion for imbrication. The abdomen suctioned. Surgical sites reinspected and noted be hemostatic. The retractor was then removed. The anterior peritoneum was then reapproximated with 3-0 Vicryl. The rectus muscles were reapproximated 3-0 Vicryl. The fascia was then closed using 0 Vicryl in a running nonlocking f ashion. The subcutaneous tissues was then irrigated and suctioned. Subcutaneous tissue was reapproximated using 3-0 Vicryl. Several subdermal stitch is placed using 3-0 Vicryl and the skin was closed with 4-0 Monocryl and subcuticular fashion. This incision was then cleaned and dried and was dressed. The patient was then taken to recovery in stable condition. All counts were correct. My surgical physician assistant played in an essential role during the operation. He assisted with tissue identification retraction, delivery of the , as well as wound closure. CHERRI ODONNELL MD. Oct 30, 2020 23:36
[2020-10-31] VITALS (9 sets, daily range): BP systolic 102–137; BP diastolic 60–88
[2020-10-31] MEDS ORDERED: KETOROLAC 30 MG/ML 1ML VIAL IV SCH
[2020-10-31] MEDS ORDERED: METHYLERGONOVINE MALEATE 0.2 MG/ML VIAL (J2210) IM STA (00:18)
[2020-10-31] MEDS ORDERED: ONDANSETRON 4MG/2ML VIAL IV PRN (00:45)
[2020-10-31] MEDS ORDERED: oxyCODONE 5MG TAB PO PRN (00:45)
[2020-10-31] MEDS ORDERED: fentaNYL 100 MCG/2 ML INJECTION (J3010) IV PRN (00:45)
[2020-10-31] MEDS: METHYLERGONOVINE MALEATE 0.2 MG TAB PO SCH ×3 (05:34→18:52)
[2020-10-31] MEDS: KETOROLAC 30 MG/ML 1ML VIAL IV SCH ×3 (05:35→17:00)
[2020-10-31 06:44] LABS: HEMATOCRIT 30.4 % (36.0-47.0); HEMOGLOBIN 10.2 g/dl (12.0-15.5); MEAN CORPUSCULAR HEMOGLOBIN 29.6 pg (27.0-33.0); MEAN CORPUSCULAR HGB CONC 33.6 g/dl (32.0-36.5); MEAN CORPUSCULAR VOLUME 88.1 fl (80.0-96.0); PLATELET COUNT, AUTOMATED 131 10^3/uL (150-450); RED BLOOD COUNT 3.45 10^6/uL (4.00-5.40); WHITE BLOOD COUNT 5.9 10^3/uL (4.0-10.0)
[2020-10-31] MEDS ORDERED: BOOSTRIX/ADACEL VACCINE (DIPHTH/PERTUSS/ACELL/TETANUS) 0.5ML SYR IM ONE (09:00)
--- NOTE | 2020-10-31 09:07 | IPNPDOC ---
Progress Note Date of Service: Oct 31, 2020 Day#: 1 Progress Note SUBJECT: Doing well without complaints. Ambulating, voiding and pain is well- controlled. Reports minimal lochia. OBJECTIVE: VITAL SIGNS: Within normal limits, afebrile. Alert and oriented times three. Abdomen: Fundus firm at U-2. Soft, NTTP. Incision: dressed Ext: neg calf tenderness. ASSESSMENT: /postoperative day #1 status post delivery. Recovering in stable condition. PLAN: 1. Continue routine /postoperative care 2. Discharge plans for tomorrow VS, I&O, 24H, Fishbone Vital Signs/I&O Vital Signs Date Time Temp Pulse Resp B/P (MAP) Pulse Ox O2 Delivery O2 Flow Rate FiO2 10/31/20 06:00 98.4 90 18 122/71 (88) 99 Room Air I&O- Last 24 Hours up to 6 AM 10/31/20 06:00 Intake Total 5162 ml Output Total 5950 ml Balance -788 ml Laboratory Data 24H LABS Laboratory Tests 2 10/30/20 10:32: Bedside Glucose (Misc Panel) 94 10/31/20 06:13: Nucleated Red Blood Cells % (auto) 0.0 CBC/BMP Laboratory Tests 10/31/20 06:13 GRAY SCOTT MD. Oct 31, 2020 09:07
[2020-10-31] MEDS: DOCUSATE SODIUM 100MG CAPSULE PO SCH ×2 (10:58→21:43)
[2020-10-31] MEDS: PRENATAL VITAMINS CHEWABLE TABLET PO SCH (10:58)
[2020-10-31] MEDS ORDERED: PERCOCET PO (21:36)
[2020-10-31] MEDS ORDERED: IBUP80TA PO (21:36)
[2020-11-01] MEDS: METHYLERGONOVINE MALEATE 0.2 MG TAB PO SCH ×2 (00:29→06:06)
[2020-11-01] MEDS: IBUPROFEN 800 MG TAB PO SCH ×2 (00:29→08:31)
[2020-11-01 02:00] VITALS: BP 131/68
[2020-11-01 06:00] VITALS: BP 114/77
[2020-11-01] MEDS: DOCUSATE SODIUM 100MG CAPSULE PO SCH (08:31)
[2020-11-01] MEDS: PRENATAL VITAMINS CHEWABLE TABLET PO SCH (08:31)
[2020-11-01 10:04] VITALS: BP 110/60
--- NOTE | 2020-11-01 14:33 | DSES ---
DISCHARGE SUMMARY DATE OF ADMISSION: 10/29/2020 DATE OF DISCHARGE: 11/01/2020 DISCHARGE DIAGNOSIS: 1. Primary section, postop day #2, stable condition. SURGEON: GRAY ODONNELL MD CHANGE ROOM ATTENDANT: HISTORY: Pat is a 30-year-old 1 para 1-0-0-1 now, she was admitted to Labor and Delivery for induction of labor due to gestational diabetes. She did undergo a primary section on 10/30/2020 for a failed induction of labor. Her surgery was uncomplicated. She had an estimated blood loss of 60 ml. Delivered a female weighing 3230 grams, 7 pounds, 7 ounces, Apgars were 9 and 9. Her postoperative course has been uncomplicated. She has been out of bed for self-care, thang-care, infant care. She is tolerating p.o. fluids and a regular diet. She is voiding without difficulty and passing flatus. She is ambulating without assist. Her pain has been well-managed. She is breast-feeding successfully and is requesting discharge home today. OBJECTIVE: Temperature is 98, pulse is 95, respirations are 18, blood pressure is 110/60. She is alert and oriented x3. Breasts are soft and nontender. Nipples are intact. Her abdomen is fundus firm at umbilicus. The incision is intact. Optifoam dressing is in place. There is no drainage observed. The perineum is intact with lochia rubra scant noted. Bilateral extremities with scant pitting edema. CBC preoperatively on 10/29/2020: Hemoglobin 11.9, hematocrit 35.4, platelets 177,000. Postoperative CBC on 10/31/2020: Hemoglobin 10.2, hematocrit 30.4, platelets 131,000. PLAN: Discharge the patient home. She is to be seen at [facility] for a two week incision check and an eight week visit. Her pain medications have been e-prescribed by Dr. Gray Odonnell to her pharmacy. Percocet and Ibuprofen as ordered. I did review discharge instructions that include breast care, incision care, thang-care, pelvic rest, activity and lifting restrictions, other danger signs to report and access to her care provider. The patient and her partner had all their questions answered and do request discharge home. ANGLE
== END 2020-11-01 13:45 | disposition home or self-care (01) | DRG 773 ==
LOC: M LDI 09:52 → M OBS 10-31 00:50
PROVIDERS: ADMIT Advanced Practice Midwife; ATTEND Advanced Practice Midwife
PROC: 3E033VJ Introduction of Other Hormone into Peripheral Vein, Percutaneous Approach (ICD-10-PCS; 2020-10-29)
PROC: 10D00Z1 Extraction of Products of Conception, Low, Open Approach (ICD-10-PCS; principal; 2020-10-30 22:21)
DX: O24.425 Gestational diabetes mellitus in childbirth, controlled by oral hypoglycemic drugs (principal); Z37.0 Single live birth; Z3A.38 38 weeks gestation of pregnancy; O61.0 Failed medical induction of labor

== ENCOUNTER → 2021-03-18 | Outpatient (REF) | payer OTHER ==
[~2021-03-18] MED LIST changes: +FOLI1TAB11 PO; +IBUP80TA PO; +METF500T13 PO; +PERCOCET PO; +PRENTAB9 PO
[2021-03-18 17:10] LABS: BASO % 0.7 % (0.0-1.0); EOS # 0.1 10^3/uL (0.0-0.5); EOS % 2.7 % (0.0-3.0); HEMATOCRIT 43.6 % (36.0-47.0); HEMOGLOBIN 14.3 g/dl (12.0-15.5); LYMPH # 1.4 10^3/uL (1.5-5.0); LYMPH % 34.9 % (24.0-44.0); MEAN CORPUSCULAR HEMOGLOBIN 29.1 pg (27.0-33.0); MEAN CORPUSCULAR HGB CONC 32.8 g/dl (32.0-36.5); MEAN CORPUSCULAR VOLUME 88.6 fl (80.0-96.0); MONO # 0.5 10^3/uL (0.0-0.8); MONO % 12.4 % (2.0-8.0); NEUTROPHILS % 49.3 % (36.0-66.0); PLATELET COUNT, AUTOMATED 270 10^3/uL (150-450); RED BLOOD COUNT 4.92 10^6/uL (4.00-5.40); WHITE BLOOD COUNT 4.1 10^3/uL (4.0-10.0)
[2021-03-18 18:51] LABS: ERYTHROCYTE SEDIMENTATION RATE 14 mm/hr (0-20)
== END ==
LOC: M SFHCRHEU 12:46
PROVIDERS: ATTEND Internal Medicine
DX: D72.819 Decreased white blood cell count, unspecified (principal); M35.9 Systemic involvement of connective tissue, unspecified